=== PATIENT | male | born 1975 | race Caucasian/White ===

== ENCOUNTER 2021-03-02 10:49 | Outpatient (CLI) | payer BC, OTHER ==
[2021-03-03 04:06] LABS: VARICELLA ZOSTER IgG 965 index (Immune >165)
[2021-03-03 06:06] LABS: HEPATITIS B SURFACE AB Non Reactive (.)
[2021-03-04 06:06] LABS: *GC NAA Negative (Negative); *TRIC.VAG. NAA Negative (Negative)
== END 2021-03-02 23:59 | disposition home or self-care (01) ==
LOC: LAB 10:49
PROVIDERS: ATTEND Legal Medicine
DX: Z11.1 Encounter for screening for respiratory tuberculosis (principal); Z11.3 Encounter for screening for infections with a predominantly sexual mode of transmission; Z23 Encounter for immunization
CPT/HCPCS: 36415; 86480; 86592; 86706; 86762; 87491